=== PATIENT | female | born 1975 | race Caucasian/White ===

== ENCOUNTER 2020-08-31 12:29 | Emergency (ER) | payer MEDICAID, OTHER ==
[~2020-08-31] VITALS: Ht 175.3 cm; Wt 75.0 kg
[~2020-08-31 12:29] MED LIST: DULO-31 PO
[2020-08-31 12:47] VITALS: BP 143/97
[2020-08-31] MEDS ORDERED: SULF5DRO RIGHTEYE (13:34)
== END 2020-08-31 13:50 | disposition home or self-care (01) ==
LOC: ER 12:30
DX: H10.13 Acute atopic conjunctivitis, bilateral (principal); Z98.890 Other specified postprocedural states; Z79.899 Other long term (current) drug therapy
CPT/HCPCS: 99283

== ENCOUNTER 2025-05-21 13:57 | Emergency (ER) | payer MEDICAID ==
[~2025-05-21] VITALS: Ht 175.3 cm; Wt 77.3 kg
[~2025-05-21 13:57] MED LIST changes: +SULF5DRO RIGHTEYE
[2025-05-21 14:02] VITALS: BP 138/91; TEMP 98.5
--- NOTE | 2025-05-21 14:56 | Physician Documentation ---
History of Present Illness ~ Chief Complaint: Allergic Reaction Stated Complaint: ALLERGIC REACTION Time Seen by MD: 14:33 HPI 49-year-old female who presents to the emergency department with reported allergic reaction. Patient is unaware of trigger. Your character type rash appeared last night without shortness a breath, so oral swelling yet mild complaint of scratchy throat. No prior history of the same and/or reactive airway disease. Medication Reconciliation Allergies: Coded Allergies: No Known Allergies (Unverified , 05/21/25) Scheduled Duloxetine Hcl* (Cymbalta*), 60 MG PO DAILY, (Reported) Sulfacetamide Sodium (Bleph-10), 2 DROP RIGHTEYE Q6H Past Medical History Past Medical History: *MUSCULOSKELETAL* Past Surgical History: orthopedic surgeries Alcohol Use: None Drug Use: none Lives In: Home Review of Systems All Other Systems at this time: Reviewed and Negative Allergic/Immunologic: Reports: see HPI Physical Exam Vital Signs: Temperature: 98.5, Source: Oral, Heart Rate: 71, Respiratory Rate: 16, BP: 138/91, Pulse Oximetry: 98, Weight: 77.300 Oxygen Flow Rate: 0 General Appearance: alert, WD/WN, moderate distress EENT: normal ENT inspection Airway: patent Neck: normal inspection Cardiovascular: normal peripheral pulses Respiratory: lungs clear Chest: no accessory muscle use Gastrointestinal: non-tender Back: normal inspection Neurologic: oriented x4 Psychiatric: normal mood/affect Skin: other (Your the correct rash to upper extremities and torso) Progress Results/Orders Results/Orders Completed Orders - MIKE BEE Triamcinolone Acet 40mg/Ml Inj (Kenalog- (05/21/25 14:55) Vital Signs 05/21/25 14:02 Temp 98.5 Pulse 71 Resp 16 B/P (MAP) 138/91 Pulse Ox 98 O2 Flow Rate 0 Medical Decision Making Additional information obtaine: family Findings Examination and history consistent with a allergic reaction with unknown trigger. Patient received Kenalog in the emergency department be discharged with a Medrol pack and hydroxyzine. She understands the importance of follow up with the primary care physician for repeat evaluation and strict instructions to return as needed. No clinical suspicion for angioedema and/or Cash's angina. No clinical suspicion for anaphylaxis. She is safely discharge. Differential Dx:Considerations: Include: Anaphylaxis, Angioedema, Bronchospasm, Contact dermatitis, Drug reaction, Hypotension, Latex allergy, Renal failure, Respiratory failure, Shock, Urticaria, Other Departure Disposition: HOME / SELF CARE / HOMELESS Impression: Primary Impression: Acute allergic reaction Qualified Codes: T78.40XA - Allergy, unspecified, initial encounter Condition: Improved Discharge Instructions: Lisseth, [id number] Additional Instructions: Tonight in the emergency department you received a Kenalog injection for allergic reaction. Please continue with your Benadryl and/or hydroxyzine that I have sent to the pharmacy. Follow up with the primary care physician for repeat evaluation and return to the emergency department if symptoms worsen. Thank you for visiting [facility]. Have a happy new year Referrals: NO PRIMARY CARE PROVIDER (PCP) Prescriptions Hydroxyzine Hcl* (Atarax*) 25 Mg Tablet 1 TAB PO Q6H PRN for ITCHING for 10 Days, #30 TAB Prov: MIKE BEE 05/21/25 Methylprednisolone (Medrol Dosepak) 4 Mg Tab.ds.pk 4 MG PO DAILY, #1 TAB 1 dose pack per packaging Prov: MIKE BEE 05/21/25 Education Educated: Patient Educated regarding: diagnosis, treatment, prognosis, need for follow up Signature Scribe Signature: . Attestation: . MIKE BEE May 21, 2025 14:55
[2025-05-21] MEDS ORDERED: HYDR-3686 PO (14:58)
[2025-05-21] MEDS ORDERED: METH4TAB81 PO (14:58)
[2025-05-21] MEDS: triamcinolone acetonide 40mg/ml inj IM ONE (15:32)
[2025-05-21 15:41] VITALS: PULSE 72; RESP 16; O2SAT 99
== END 2025-05-21 15:46 | disposition home or self-care (01) ==
LOC: ER 13:57
DX: T78.49XA Other allergy, initial encounter (principal); Z79.899 Other long term (current) drug therapy; Z98.890 Other specified postprocedural states; X58.XXXA Exposure to other specified factors, initial encounter
CPT/HCPCS: 96372; 99283; J3301